=== PATIENT | male | born 1970 | race Caucasian/White ===

== ENCOUNTER 2021-05-12 13:08 | Emergency (ER) | payer MEDICAID ==
[~2021-05-12] VITALS: Ht 175.3 cm; Wt 71.7 kg
[2021-05-12 13:52] LABS: URINE BILIRUBIN NEGATIVE (Negative); URINE BLOOD NEGATIVE (Negative); URINE CLARITY CLEAR; URINE COLOR YELLOW; URINE GLUCOSE-RANDOM NEGATIVE (Negative); URINE KETONES NEGATIVE (Negative); URINE LEUKOCYTES-REFLEX NEGATIVE (Negative); URINE NITRITE-REFLEX NEGATIVE (Negative); URINE PROTEIN NEGATIVE (Negative); URINE UROBILINOGEN 0.2 E.U./dl (0.2-1.0)
[2021-05-12 15:07] VITALS: BP 151/70
== END 2021-05-12 15:08 | disposition home or self-care (01) ==
LOC: M.ERS 13:08
PROVIDERS: Emergency Medicine
DX: N50.812 Left testicular pain (principal); Z91.010 Allergy to peanuts